=== PATIENT | female | born 1945 | race Caucasian/White ===

== ENCOUNTER 2016-09-11 06:20 | Emergency (ER) | payer MEDICARE ==
[~2016-09-11] VITALS: Ht 170.2 cm; Wt 106.1 kg
[~2016-09-11 06:20] MED LIST: AMLO10TA2 PO; AMOX1TAB61 PO; APIX5TAB PO; ASPI-482 PO; BENZ100C PO; DIPH25CA58 PO; GLIM2TAB2 PO; HYDR28OI6 TP; INSU300I SQ; LOSA100T6 PO; MAGN400T22 PO; RIVA10TA PO; SIMV40TA3 PO
[2016-09-11 06:26] VITALS: BP 138/65
--- NOTE | 2016-09-11 06:33 | EKG ---
[facility] [address] [place] [address] Test Date: 2016-09-11 Test Time: 06:25:55 Pat Name: RUTH ENNIS Department: Room: Gender: F [employer]er: : 1945 Requested By: David ELAINE Order Number: [id number] Reading MD: Karo Edge Measurements Intervals [place] Rate: 52 P: 51 AK: 204 QRS: -25 QRSD: 110 T: 31 QT: 462 QTc: 432 Interpretive Statements SINUS RHYTHM LEFTWARD AXIS NO SPECIFIC ECG ABNORMALITIES RI6.01 Compared to ECG 02/23/2016 11:30:35 Left-axis deviation now present Electronically Signed On 09-14-2016 15:47:24 CDT by Karo Edge
--- NOTE | 2016-09-11 06:38 | PHYS DOC ---
Past Medical History Past Medical History: A-Fib, CVA, Diabetes-Type II, Hypertension, Renal Disease Past Surgical History: Cholecystectomy Alcohol Use: None Drug Use: None Adult General Chief Complaint Chief Complaint: DIFFICULTY SWALLOWING HPI HPI Patient is a 71 year old female who presents by EMS for feeling like she " needs to burp a large burp". States this feeling started approximately 12 hours ago and she was unable to sleep well last night due to it. Has been constant. She denies difficulty swallowing, speech changes, chest pain, abdominal pain, throat burning, acid taste, fever or chills, nausea or vomiting , diarrhea, numbness, tingling, weakness, headache, dizziness. States she ate and drank normally yesterday. She had some water without difficulty prior to calling EMS. Review of Systems Review of Systems Constitutional: Denies fever or chills [] Eyes: Denies change in visual acuity, redness, or eye pain [] HENT: Denies nasal congestion or sore throat [] Respiratory: Denies cough or shortness of breath [] Cardiovascular: No additional information not addressed in HPI [] GI: Denies abdominal pain, nausea, vomiting, bloody stools or diarrhea [] : Denies dysuria or hematuria [] Musculoskeletal: Denies back pain or joint pain [] Integument: Denies rash or skin lesions [] Neurologic: Denies headache, focal weakness or sensory changes [] Endocrine: Denies polyuria or polydipsia [] Current Medications Current Medications Current Medications Medications (Trade) Dose Ordered Sig/Luis Carlos Start Time Stop Time Status Last Admin Dose Admin Multi-Ingredient Mouthwash/Gargle (Gi Cocktail Single Dose) 15 ml 1X ONCE 09/11/16 06:45 09/11/16 06:46 DC 09/11/16 06:42 15 ML Allergies Allergies Allergies Coded Allergies Type Severity Reaction Last Updated Verified WAQAS Inhibitors Allergy Intermediate Shortness of Air 09/05/16 Yes apixaban Allergy Intermediate Rash 02/23/16 Yes Physical Exam Physical Exam Constitutional: Well developed, well nourished, no acute distress, non-toxic appearance. Belching multiple times during exam. [] HENT: Normocephalic, atraumatic, bilateral external ears normal, oropharynx moist, no oral exudates, nose normal. [] Eyes: PERRLA, EOMI. [] Neck: Normal range of motion, no tenderness, supple, no stridor. [] Cardiovascular:Heart rate regular rhythm [] Lungs & Thorax: Bilateral breath sounds clear to auscultation [] Abdomen: Bowel sounds normal, soft, no tenderness. [] Skin: Warm, dry, no erythema, no rash. [] Back: No tenderness, no CVA tenderness. [] Extremities: No tenderness, ROM intact, no edema. [] Neurologic: Alert and oriented X 3, normal motor function, normal sensory function, no focal deficits noted. [] Psychologic: Affect normal, judgement normal, mood normal. [] Current Patient Data Vital Signs Vital Signs Date Time Temp Pulse Resp B/P Pulse Ox O2 Delivery O2 Flow Rate FiO2 09/11/16 06:26 98.8 53 12 138/65 97 Room Air 98.8 Lab Values Laboratory Tests Test 09/11/16 06:30 White Blood Count 7.8x10^3/uL (4.0-11.0) Red Blood Count 4.47x10^6/uL (3.50-5.40) Hemoglobin 13.7g/dL (12.0-15.5) Hematocrit 40.3% (36.0-47.0) Mean Corpuscular Volume 90fL (79-100) Mean Corpuscular Hemoglobin 31pg (25-35) Mean Corpuscular Hemoglobin Concent 34g/dL (31-37) Red Cell Distribution Width 13.1% (11.5-14.5) Platelet Count 207x10^3/uL (140-400) Neutrophils (%) (Auto) 62% (31-73) Lymphocytes (%) (Auto) 27% (24-48) Monocytes (%) (Auto) 8% (0-9) Eosinophils (%) (Auto) 3% (0-3) Basophils (%) (Auto) 1% (0-3) Neutrophils # (Auto) 4.8x10^3uL (1.8-7.7) Lymphocytes # (Auto) 2.1x10^3/uL (1.0-4.8) Monocytes # (Auto) 0.6x10^3/uL (0.0-1.1) Eosinophils # (Auto) 0.2x10^3/uL (0.0-0.7) Basophils # (Auto) 0.1x10^3/uL (0.0-0.2) Sodium Level 142mmol/L (136-145) Potassium Level 4.0mmol/L (3.5-5.1) Chloride Level 105mmol/L (98-107) Carbon Dioxide Level 27mmol/L (21-32) Anion Gap 10 (6-14) Blood Urea Nitrogen 22mg/dL (7-20) H Creatinine 1.4mg/dL (0.6-1.0) H Estimated GFR (Cockcroft-Gault) 37.1 Glucose Level 132mg/dL (70-99) H Calcium Level 10.1mg/dL (8.5-10.1) Troponin I Quantitative < 0.017ng/mL (0.000-0.055) Laboratory Tests 09/11/16 06:30 Laboratory Tests 09/11/16 06:30 EKG EKG EKG as interpreted by me as normal sinus rhythm, rate 52, no ST-T changes, P-R 204, QTc 432, no ectopy Course & Med Decision Making Course & Med Decision Making Pertinent Labs and Imaging studies reviewed. (See chart for details) Bedside swallow of water without difficulty. Laboratory evaluation is unremarkable. She is feeling better, however her symptoms have not completely resolved. Discussed supportive care for possible GERD. Return precautions given. She and family understand and agree with plan. Dragon Disclaimer Dragon Disclaimer This electronic medical record was generated, in whole or in part, using a voice recognition dictation system. Departure Departure Impression: Primary Impression: Belching Disposition: 01 HOME, SELF-CARE Condition: STABLE Referrals: QUINTON GONG MD (PCP) Patient Instructions: Gastroesophageal Reflux Disease, Adult, [id number] Additional Instructions: Try taking tums or medication such as gas-x to help with symptoms for possible acid reflux symptoms. Follow up with your primary care doctor. Return for any concerns. David ELAINE MD Sep 11, 2016 06:38
[2016-09-11] MEDS ORDERED: LIDO:MAALOX:DONNATAL 1:1:1 15 ML SINGLE DOSE SWSW ONE (06:45)
[2016-09-11 06:47] LABS: BASO # 0.1 x10^3/uL (0.0-0.2); BASO % 1 % (0-3); EOS % 3 % (0-3); HEMATOCRIT 40.3 % (36.0-47.0); HEMOGLOBIN 13.7 g/dL (12.0-15.5); LYMPH # 2.1 x10^3/uL (1.0-4.8); LYMPH % 27 % (24-48); MEAN CORPUSCULAR HEMOGLOBIN 31 pg (25-35); MEAN CORPUSCULAR HGB CONC 34 g/dL (31-37); MEAN CORPUSCULAR VOLUME 90 fL (79-100); MONO % 8 % (0-9); NEUT % 62 % (31-73); PLATELET COUNT 207 x10^3/uL (140-400); RED BLOOD COUNT 4.47 x10^6/uL (3.50-5.40); RED CELL DISTRIBUTION WIDTH 13.1 % (11.5-14.5); WHITE BLOOD COUNT 7.8 x10^3/uL (4.0-11.0)
[2016-09-11 06:58] LABS: CALCIUM 10.1 mg/dL (8.5-10.1); CREATININE 1.4 mg/dL (0.6-1.0); GFR 37.1
== END 2016-09-11 07:41 | disposition home or self-care (01) ==
LOC: ER 06:20
DX: R14.2 Eructation (principal); I48.91 Unspecified atrial fibrillation; E11.9 Type 2 diabetes mellitus without complications; I10 Essential (primary) hypertension; Z86.73 Personal history of transient ischemic attack (TIA), and cerebral infarction without residual deficits; Z88.8 Allergy status to other drugs, medicaments and biological substances
CPT/HCPCS: 36415; 80048; 84484; 85027; 93005; 99285-25

== ENCOUNTER 2016-09-14 12:22 | Emergency (ER) | payer MEDICARE ==
[~2016-09-14] VITALS: Ht 170.2 cm; Wt 106.1 kg
--- NOTE | 2016-09-14 13:11 | PHYS DOC ---
Past Medical History Past Medical History: A-Fib, CVA, Diabetes-Type II, Hypertension, Renal Disease Past Surgical History: Cholecystectomy Alcohol Use: None Drug Use: None Adult General Chief Complaint Chief Complaint: GI PROBLEM HPI HPI This is a 71-year-old female who continues to be belching for the last week. Patient was seen several days ago for similar complaints and told that she is likely having symptoms of GERD. She was placed on ranitidine therapy with no relief. She continues to actively belch in the room. She is tolerating her secretions without difficulty and she is in no distress. She was recently seen under my care for an acute CVA of her frontal lobe in which she had significant improvement of her symptoms on the hospital. She is not claiming any neuro deficits today. Review of Systems Review of Systems Constitutional: Denies fever or chills [] Eyes: Denies change in visual acuity, redness, or eye pain [] HENT: Denies nasal congestion or sore throat [] Respiratory: Denies cough or shortness of breath [] Cardiovascular: No additional information not addressed in HPI [] GI: Denies abdominal pain, nausea, vomiting, bloody stools or diarrhea [] : Denies dysuria or hematuria [] Musculoskeletal: Denies back pain or joint pain [] Integument: Denies rash or skin lesions [] Neurologic: Denies headache, focal weakness or sensory changes [] Endocrine: Denies polyuria or polydipsia [] Current Medications Current Medications Current Medications Medications (Trade) Dose Ordered Sig/Luis Carlos Start Time Stop Time Status Last Admin Dose Admin Simethicone (Gas-X) 80 mg PRN AFTMEALHC PRN 09/14/16 13:15 09/14/16 14:05 80 MG Allergies Allergies Allergies Coded Allergies Type Severity Reaction Last Updated Verified WAQAS Inhibitors Allergy Intermediate Shortness of Air 09/05/16 Yes apixaban Allergy Intermediate Rash 02/23/16 Yes Physical Exam Physical Exam Constitutional: Well developed, well nourished, no acute distress, non-toxic appearance. [] HENT: Normocephalic, atraumatic, bilateral external ears normal, oropharynx moist, no oral exudates, nose normal. [] Eyes: PERRLA, EOMI, conjunctiva normal, no discharge. [] Neck: Normal range of motion, no tenderness, supple, no stridor. [] Cardiovascular:Heart rate regular rhythm, no murmur [] Lungs & Thorax: Bilateral breath sounds clear to auscultation [] Abdomen: Bowel sounds normal, soft, no tenderness, no masses, no pulsatile masses. [] Skin: Warm, dry, no erythema, no rash. [] Back: No tenderness, no CVA tenderness. [] Extremities: No tenderness, no cyanosis, no clubbing, ROM intact, no edema. [] Neurologic: Alert and oriented X 3, normal motor function, normal sensory function, no focal deficits noted. [] Psychologic: Affect normal, judgement normal, mood normal. [] Current Patient Data Vital Signs Vital Signs Date Time Temp Pulse Resp B/P Pulse Ox O2 Delivery O2 Flow Rate FiO2 09/14/16 12:36 98.3 91 24 163/81 95 Room Air 98.3 Lab Values Laboratory Tests Test 09/14/16 13:14 White Blood Count 7.9x10^3/uL (4.0-11.0) Red Blood Count 4.54x10^6/uL (3.50-5.40) Hemoglobin 13.7g/dL (12.0-15.5) Hematocrit 41.4% (36.0-47.0) Mean Corpuscular Volume 91fL (79-100) Mean Corpuscular Hemoglobin 30pg (25-35) Mean Corpuscular Hemoglobin Concent 33g/dL (31-37) Red Cell Distribution Width 13.3% (11.5-14.5) Platelet Count 192x10^3/uL (140-400) Neutrophils (%) (Auto) 63% (31-73) Lymphocytes (%) (Auto) 27% (24-48) Monocytes (%) (Auto) 7% (0-9) Eosinophils (%) (Auto) 2% (0-3) Basophils (%) (Auto) 1% (0-3) Neutrophils # (Auto) 5.0x10^3uL (1.8-7.7) Lymphocytes # (Auto) 2.2x10^3/uL (1.0-4.8) Monocytes # (Auto) 0.6x10^3/uL (0.0-1.1) Eosinophils # (Auto) 0.2x10^3/uL (0.0-0.7) Basophils # (Auto) 0.1x10^3/uL (0.0-0.2) Sodium Level 142mmol/L (136-145) Potassium Level 4.0mmol/L (3.5-5.1) Chloride Level 104mmol/L (98-107) Carbon Dioxide Level 28mmol/L (21-32) Anion Gap 10 (6-14) Blood Urea Nitrogen 17mg/dL (7-20) Creatinine 1.2mg/dL (0.6-1.0) H Estimated GFR (Cockcroft-Gault) 44.3 BUN/Creatinine Ratio 14 (6-20) Glucose Level 100mg/dL (70-99) H Calcium Level 10.6mg/dL (8.5-10.1) H Total Bilirubin 1.4mg/dL (0.2-1.0) H Aspartate Amino Transferase (AST) 18U/L (15-37) Alanine Aminotransferase (ALT) 18U/L (14-59) Alkaline Phosphatase 90U/L (46-116) Troponin I Quantitative < 0.017ng/mL (0.000-0.055) Total Protein 7.3g/dL (6.4-8.2) Albumin 3.8g/dL (3.4-5.0) Albumin/Globulin Ratio 1.1 (1.0-1.7) Lipase 52U/L (73-393) L Laboratory Tests 09/14/16 13:14 Laboratory Tests 09/14/16 13:14 EKG EKG EKG as interpreted by me shows a sinus bradycardia with a rate of 49 bpm. QT interval is prolonged at 528 ms. There is a leftward axis. There are no obvious ischemic findings. Radiology/Procedures Radiology/Procedures [] Course & Med Decision Making Course & Med Decision Making Pertinent Labs and Imaging studies reviewed. (See chart for details) This is a 71 yo female presenting with GI discomfort and continued belching had minimal relief with simethicone. OB discharging her with close GI follow-up as she is likely candidate for endoscopy. She'll continue taking her medications as prescribed. There is the possibility this is a medication effect. She is tolerating her secretions without difficulty. Her laboratory workup was unremarkable including a EKG and chest x-ray. Dragon Disclaimer Dragon Disclaimer This electronic medical record was generated, in whole or in part, using a voice recognition dictation system. Departure Departure Impression: Primary Impression: Belching Additional Impression: Dyspepsia Disposition: 01 HOME, SELF-CARE Admitting Physician: Other Condition: STABLE Referrals: QUINTON GONG MD (PCP) TYREE VAZQUEZ MD Patient Instructions: Gastroesophageal Reflux Disease, Adult Additional Instructions: Please follow up with your primary doctor and the GI doctor, Dr. Vazquez, for your swallowing difficulties in the next 2-3 days. Continue to take your medication as prescribed. Return to the ER immediately if you develop any inability to swallow or develop any new symptoms such as chest pain or shortness of breath. Problem Qualifiers TYREE FISHER DO Sep 14, 2016 13:11
[2016-09-14] MEDS ORDERED: SIMETHICONE 80 MG TAB.CHEW PO PRN (13:15)
[2016-09-14 13:23] LABS: BASO # 0.1 x10^3/uL (0.0-0.2); BASO % 1 % (0-3); EOS % 2 % (0-3); HEMATOCRIT 41.4 % (36.0-47.0); HEMOGLOBIN 13.7 g/dL (12.0-15.5); LYMPH # 2.2 x10^3/uL (1.0-4.8); LYMPH % 27 % (24-48); MEAN CORPUSCULAR HEMOGLOBIN 30 pg (25-35); MEAN CORPUSCULAR HGB CONC 33 g/dL (31-37); MEAN CORPUSCULAR VOLUME 91 fL (79-100); MONO % 7 % (0-9); NEUT % 63 % (31-73); PLATELET COUNT 192 x10^3/uL (140-400); RED BLOOD COUNT 4.54 x10^6/uL (3.50-5.40); RED CELL DISTRIBUTION WIDTH 13.3 % (11.5-14.5); WHITE BLOOD COUNT 7.9 x10^3/uL (4.0-11.0)
[2016-09-14 13:34] LABS: CALCIUM 10.6 mg/dL (8.5-10.1); CREATININE 1.2 mg/dL (0.6-1.0); GFR 44.3
[2016-09-14 13:40] LABS: ALBUMIN 3.8 g/dL (3.4-5.0); ALBUMIN/GLOBULIN RATIO 1.1 (1.0-1.7); TOTAL BILIRUBIN 1.4 mg/dL (0.2-1.0); TOTAL PROTEIN 7.3 g/dL (6.4-8.2)
--- NOTE | 2016-09-14 14:21 | RAD ---
AP portable chest radiograph 09/14/2016 Clinical History: Increased belching. An AP portable erect digital radiograph of the chest was obtained. Comparison study is dated 09/04/2016. The cardiac silhouette is mildly enlarged. The thoracic aorta is tortuous. Atherosclerotic calcification of the thoracic aorta is seen. No acute pulmonary infiltrate is seen. No pleural effusion or pneumothorax is noted. Degenerative changes are seen involving the thoracic spine and both shoulders. Impression: No acute abnormality is seen.
[2016-09-14 14:30] VITALS: BP 125/59
--- NOTE | 2016-09-15 07:15 | EKG ---
[facility] [address] [place] [address] Test Date: 2016-09-14 Test Time: 13:41:07 Pat Name: RUTH ENNIS Department: Room: Gender: F [employer] Working [employer]visor: : 1945 Requested By: TYREE FISHER Order Number: [id number] Reading MD: Bernardo Pearson Measurements Intervals [place] Rate: 49 P: 90 AK: 198 QRS: -26 QRSD: 104 T: 35 QT: 528 QTc: 480 Interpretive Statements SINUS BRADYCARDIA Electronically Signed On 09-16-2016 15:34:19 CDT by Bernardo Pearson
== END 2016-09-14 14:50 | disposition home or self-care (01) ==
LOC: ER 12:22
DX: R14.2 Eructation (principal); R10.13 Epigastric pain; E11.9 Type 2 diabetes mellitus without complications; I10 Essential (primary) hypertension; I48.91 Unspecified atrial fibrillation; Z86.73 Personal history of transient ischemic attack (TIA), and cerebral infarction without residual deficits; Z90.49 Acquired absence of other specified parts of digestive tract
CPT/HCPCS: 36415; 71010; 80053; 83690; 84484; 85027; 93005; 99285-25

== ENCOUNTER → 2017-09-28 | Outpatient (CLI) | payer MEDICARE | END | disposition home or self-care (01) | LOC: ECHO 09:34 | DX: I08.3 Combined rheumatic disorders of mitral, aortic and tricuspid valves (principal); I12.9 Hypertensive chronic kidney disease with stage 1 through stage 4 chronic kidney disease, or unspecified chronic kidney disease; E11.22 Type 2 diabetes mellitus with diabetic chronic kidney disease; N18.4 Chronic kidney disease, stage 4 (severe) | CPT/HCPCS: 93306 ==

== ENCOUNTER 2019-01-24 08:59 | Observation (INO) | payer MEDICARE ==
[~2019-01-24] VITALS: Ht 170.2 cm; Wt 109.9 kg
[~2019-01-24 08:59] MED LIST changes: -AMLO10TA2 PO; +AMLO10TA8 PO; +LOSA100T14 PO; -LOSA100T6 PO
[2019-01-24 10:16] LABS: BASO # 0.1 x10^3/uL (0.0-0.2); BASO % 1 % (0-3); EOS # 0.2 x10^3/uL (0.0-0.7); EOS % 3 % (0-3); HEMATOCRIT 43.4 % (36.0-47.0); HEMOGLOBIN 14.6 g/dL (12.0-15.5); LYMPH # 1.6 x10^3/uL (1.0-4.8); LYMPH % 20 % (24-48); MEAN CORPUSCULAR HEMOGLOBIN 31 pg (25-35); MEAN CORPUSCULAR HGB CONC 34 g/dL (31-37); MEAN CORPUSCULAR VOLUME 92 fL (79-100); MONO # 0.6 x10^3/uL (0.0-1.1); MONO % 8 % (0-9); NEUT # 5.5 x10^3/uL (1.8-7.7); NEUT % 69 % (31-73); PLATELET COUNT 204 x10^3/uL (140-400); RED BLOOD COUNT 4.71 x10^6/uL (3.50-5.40); RED CELL DISTRIBUTION WIDTH 13.4 % (11.5-14.5)
[2019-01-24 10:17] LABS: CREATININE 1.3 mg/dL (0.6-1.0); GFR 40.2; POTASSIUM 3.8 mmol/L (3.5-5.1)
[2019-01-24 10:23] LABS: ALBUMIN 3.5 g/dL (3.4-5.0); ALBUMIN/GLOBULIN RATIO 0.8 (1.0-1.7); TOTAL BILIRUBIN 1.7 mg/dL (0.2-1.0); TOTAL PROTEIN 7.9 g/dL (6.4-8.2)
[2019-01-24 10:38] LABS: PROTHROMBIN TIME PATIENT 26.7 SEC (11.7-14.0)
[2019-01-24 10:51] LABS: FECAL OB PT POSITIVE (NEG)
--- NOTE | 2019-01-24 10:57 | PHYS DOC ---
Past Medical History Past Medical History: A-Fib, CVA, Diabetes-Type II, High Cholesterol, Hypertension, Renal Disease Past Surgical History: Cholecystectomy Alcohol Use: None Drug Use: None Adult General Chief Complaint Chief Complaint: RECTAL BLEED [facility] HPI Patient is a 73 year old female on XARELTO HX OF AFIB ON CVA P/W RECTAL BLEEDING "ALL NIGHT LAST NIGHT" SINCE 5 PM EVERYTIME WENT TO BATHROOM the toilet bowl was filled with blood she really couldn't tell if there was any stool or not she did not see any brown stool no abdominal pain no chest pain no shortness of breath and feels a little weak. She was constipated about 6 days ago but then she had a couple of normal bowel movements in the interim. No prior history of GI bleeding that she knows of. Her last colonoscopy was a few years ago she does not know the results except for the fact that they took out a polyp she tells me Review of Systems Review of Systems Constitutional: Denies fever or chills [] Eyes: Denies change in visual acuity, redness, or eye pain [] HENT: Denies nasal congestion or sore throat [] Respiratory: Denies cough or shortness of breath [] Cardiovascular: No additional information not addressed in HPI [] GI: All other systems were reviewed and found to be within normal limits, except as documented in this note. Allergies Allergies Allergies Coded Allergies Type Severity Reaction Last Updated Verified WAQAS Inhibitors Allergy Intermediate Shortness of Air 09/05/16 Yes apixaban Allergy Intermediate Rash 02/23/16 Yes Physical Exam Physical Exam Constitutional: Well developed, well nourished, no acute distress, non-toxic appearance. [] HENT: Normocephalic, atraumatic, bilateral external ears normal, oropharynx mo ist, no oral exudates, nose normal. [] Eyes: PERRLA, EOMI, conjunctiva normal, no discharge. [] Neck: Normal range of motion, no tenderness, supple, no stridor. [] Cardiovascular:Heart rate regular rhythm, no murmur [] Lungs & Thorax: Bilateral breath sounds clear to auscultation [] Abdomen: Bowel sounds normal, soft, no tenderness, no masses, no pulsatile masses. [] Rectal exam performed: Did show evidence of light on the pad as well as no obvious external hemorrhoid there was basically red stool in the rectal vault proximally tested positive in the lab Skin: Warm, dry, no erythema, no rash. [] Back: No tenderness, no CVA tenderness. [] Extremities: No tenderness, no cyanosis, no clubbing, ROM intact, no edema. [] Neurologic: Alert and oriented X 3, normal motor function, normal sensory func tion, no focal deficits noted. [] Psychologic: Affect normal, judgement normal, mood normal. [] Current Patient Data Vital Signs Vital Signs Date Time Temp Pulse Resp B/P (MAP) Pulse Ox O2 Delivery O2 Flow Rate FiO2 01/24/19 09:20 97.6 94 16 114/77 (89) 96 Room Air 97.6 Lab Values Laboratory Tests Test 01/24/19 09:30 01/24/19 09:57 Stool Occult Blood Positive (NEG) White Blood Count 8.0 x10^3/uL (4.0-11.0) Red Blood Count 4.71 x10^6/uL (3.50-5.40) Hemoglobin 14.6 g/dL (12.0-15.5) Hematocrit 43.4 % (36.0-47.0) Mean Corpuscular Volume 92 fL (79-100) Mean Corpuscular Hemoglobin 31 pg (25-35) Mean Corpuscular Hemoglobin Concent 34 g/dL (31-37) Red Cell Distribution Width 13.4 % (11.5-14.5) Platelet Count 204 x10^3/uL (140-400) Neutrophils (%) (Auto) 69 % (31-73) Lymphocytes (%) (Auto) 20 % (24-48) L Monocytes (%) (Auto) 8 % (0-9) Eosinophils (%) (Auto) 3 % (0-3) Basophils (%) (Auto) 1 % (0-3) Neutrophils # (Auto) 5.5 x10^3/uL (1.8-7.7) Lymphocytes # (Auto) 1.6 x10^3/uL (1.0-4.8) Monocytes # (Auto) 0.6 x10^3/uL (0.0-1.1) Eosinophils # (Auto) 0.2 x10^3/uL (0.0-0.7) Basophils # (Auto) 0.1 x10^3/uL (0.0-0.2) Prothrombin Time 26.7 SEC (11.7-14.0) H Prothrombin Time INR 2.5 (0.8-1.1) H Sodium Level 143 mmol/L (136-145) Potassium Level 3.8 mmol/L (3.5-5.1) Chloride Level 105 mmol/L (98-107) Carbon Dioxide Level 25 mmol/L (21-32) Anion Gap 13 (6-14) Blood Urea Nitrogen 15 mg/dL (7-20) Creatinine 1.3 mg/dL (0.6-1.0) H Estimated GFR (Cockcroft-Gault) 40.2 BUN/Creatinine Ratio 12 (6-20) Glucose Level 212 mg/dL (70-99) H Calcium Level 10.0 mg/dL (8.5-10.1) Total Bilirubin 1.7 mg/dL (0.2-1.0) H Aspartate Amino Transferase (AST) 21 U/L (15-37) Alanine Aminotransferase (ALT) 16 U/L (14-59) Alkaline Phosphatase 93 U/L (46-116) Total Protein 7.9 g/dL (6.4-8.2) Albumin 3.5 g/dL (3.4-5.0) Albumin/Globulin Ratio 0.8 (1.0-1.7) L Laboratory Tests 01/24/19 09:57 Laboratory Tests 01/24/19 09:57 EKG EKG [] Radiology/Procedures Radiology/Procedures [] Course & Med Decision Making Course & Med Decision Making Pertinent Labs and Imaging studies reviewed. (See chart for details) []This is a 73-year-old female with a history of A. fib onXARELTO presenting with rectal bleeding. It could perhaps be a hemorrhoid although I did not see obvious evidence of this the good news is the blood pressure and he will are normal. Given the fact that she is on anticoagulation She had talked about risk and benefits we agreed to observation overnight serial hemoglobins, plan to consult with Dr. Echeverria for admission. Dragon Disclaimer Dragon Disclaimer This electronic medical record was generated, in whole or in part, using a voice recognition dictation system. Departure Departure Impression: Primary Impression: GI bleed Disposition: ADMITTED INPATIENT Admitting Physician: HARPAL Condition: STABLE Referrals: MONICA CORDERO MD (PCP) KHLOE PAULSON MD Jan 24, 2019 10:56
[2019-01-24] MEDS: IV NORMAL SALINE 1000ML BAG 1,000 ML IV SCH (12:15)
[2019-01-24 12:35] VITALS: BP 120/75
--- NOTE | 2019-01-24 13:25 | PDOC2 ---
CONSULT Date of Consult Date of Consult DATE: 01/24/19 TIME: 13:23 Reason for Consult Reason for Consult: Rectal bleeding/hx colon polyps Past Medical History Cardiovascular: AFIB, HTN, Hyperlipidemia Pulmonary: Pulmonary embolus CENTRAL NERVOUS SYSTEM: Other GI: No pertinent hx Heme/Onc: Anemia NOS Hepatobiliary: No pertinent hx Psych: No pertinent hx Musculoskeletal: Osteoarthritis Rheumatologic: No pertinent hx Infectious disease: No pertinent hx Renal/: Chronic renal insuff Endocrine: Diabetes, Hyperparathyroidism, Other Past Surgical History Past Surgical History: Cholecystectomy, Other Family History Family History: Cancer, Diabetes Social History ALCOHOL: none Drugs: None Lives: Alone Current Problem List Problem List Problems Medical Problems: (1) GI bleed Status: Acute Current Medications Current Medications Current Medications Sodium Chloride 1,000 ml @ 75 mls/hr [id number] IV Last administered on 01/24/19at 12:15; Start 01/24/19 at 10:52; Stop 01/25/19 at 10:51 Active Scripts Active Anti-Itch (Hydrocortisone Acetate) 28 Gm Oint...g. 1 Jimi TP QIDPRN Benadryl (Diphenhydramine Hcl) 25 Mg Capsule 50 Mg PO PRN Q6HRS PRN Reported Tessalon Perle (Benzonatate) 100 Mg Capsule 100 Mg PO TID PRN 10 Days Toujeo Solostar (Insulin Glargine,Hum.rec.anlog) 300 Unit/1 Ml Insuln.pen 30 Unit SQ HS Glimepiride 2 Mg Tablet 2 Mg PO BIDAC Aspir 81 (Aspirin) 81 Mg Tablet.dr 81 Mg PO Losartan Potassium 100 Mg Tablet 100 Mg PO DAILY Mag-Oxide (Magnesium Oxide) 400 Mg Tablet 1 Tab PO BID Amlodipine Besylate 10 Mg Tablet 10 Mg PO DAILY Simvastatin 40 Mg Tablet 40 Mg PO DAILY Allergies Allergies: Coded Allergies: WAQAS Inhibitors (Verified Allergy, Intermediate, Shortness of Air, 09/05/16) apixaban (Verified Allergy, Intermediate, Rash, 02/23/16) Vitals VITALS Vital Signs Date Time Temp Pulse Resp B/P (MAP) Pulse Ox O2 Delivery O2 Flow Rate FiO2 01/24/19 12:13 86 18 127/67 (87) 97 Room Air 01/24/19 09:20 97.6 97.6 Labs Labs Laboratory Tests Test 01/24/19 09:30 01/24/19 09:57 Stool Occult Blood Positive (NEG) White Blood Count 8.0 x10^3/uL (4.0-11.0) Red Blood Count 4.71 x10^6/uL (3.50-5.40) Hemoglobin 14.6 g/dL (12.0-15.5) Hematocrit 43.4 % (36.0-47.0) Mean Corpuscular Volume 92 fL (79-100) Mean Corpuscular Hemoglobin 31 pg (25-35) Mean Corpuscular Hemoglobin Concent 34 g/dL (31-37) Red Cell Distribution Width 13.4 % (11.5-14.5) Platelet Count 204 x10^3/uL (140-400) Neutrophils (%) (Auto) 69 % (31-73) Lymphocytes (%) (Auto) 20 % (24-48) Monocytes (%) (Auto) 8 % (0-9) Eosinophils (%) (Auto) 3 % (0-3) Basophils (%) (Auto) 1 % (0-3) Neutrophils # (Auto) 5.5 x10^3/uL (1.8-7.7) Lymphocytes # (Auto) 1.6 x10^3/uL (1.0-4.8) Monocytes # (Auto) 0.6 x10^3/uL (0.0-1.1) Eosinophils # (Auto) 0.2 x10^3/uL (0.0-0.7) Basophils # (Auto) 0.1 x10^3/uL (0.0-0.2) Prothrombin Time 26.7 SEC (11.7-14.0) Prothromb Time International Ratio 2.5 (0.8-1.1) Sodium Level 143 mmol/L (136-145) Potassium Level 3.8 mmol/L (3.5-5.1) Chloride Level 105 mmol/L (98-107) Carbon Dioxide Level 25 mmol/L (21-32) Anion Gap 13 (6-14) Blood Urea Nitrogen 15 mg/dL (7-20) Creatinine 1.3 mg/dL (0.6-1.0) Estimated GFR (Cockcroft-Gault) 40.2 BUN/Creatinine Ratio 12 (6-20) Glucose Level 212 mg/dL (70-99) Calcium Level 10.0 mg/dL (8.5-10.1) Total Bilirubin 1.7 mg/dL (0.2-1.0) Aspartate Amino Transf (AST/SGOT) 21 U/L (15-37) Alanine Aminotransferase (ALT/SGPT) 16 U/L (14-59) Alkaline Phosphatase 93 U/L (46-116) Total Protein 7.9 g/dL (6.4-8.2) Albumin 3.5 g/dL (3.4-5.0) Albumin/Globulin Ratio 0.8 (1.0-1.7) Laboratory Tests Test 01/24/19 09:30 01/24/19 09:57 Stool Occult Blood Positive (NEG) White Blood Count 8.0 x10^3/uL (4.0-11.0) Red Blood Count 4.71 x10^6/uL (3.50-5.40) Hemoglobin 14.6 g/dL (12.0-15.5) Hematocrit 43.4 % (36.0-47.0) Mean Corpuscular Volume 92 fL (79-100) Mean Corpuscular Hemoglobin 31 pg (25-35) Mean Corpuscular Hemoglobin Concent 34 g/dL (31-37) Red Cell Distribution Width 13.4 % (11.5-14.5) Platelet Count 204 x10^3/uL (140-400) Neutrophils (%) (Auto) 69 % (31-73) Lymphocytes (%) (Auto) 20 % (24-48) Monocytes (%) (Auto) 8 % (0-9) Eosinophils (%) (Auto) 3 % (0-3) Basophils (%) (Auto) 1 % (0-3) Neutrophils # (Auto) 5.5 x10^3/uL (1.8-7.7) Lymphocytes # (Auto) 1.6 x10^3/uL (1.0-4.8) Monocytes # (Auto) 0.6 x10^3/uL (0.0-1.1) Eosinophils # (Auto) 0.2 x10^3/uL (0.0-0.7) Basophils # (Auto) 0.1 x10^3/uL (0.0-0.2) Prothrombin Time 26.7 SEC (11.7-14.0) Prothromb Time International Ratio 2.5 (0.8-1.1) Sodium Level 143 mmol/L (136-145) Potassium Level 3.8 mmol/L (3.5-5.1) Chloride Level 105 mmol/L (98-107) Carbon Dioxide Level 25 mmol/L (21-32) Anion Gap 13 (6-14) Blood Urea Nitrogen 15 mg/dL (7-20) Creatinine 1.3 mg/dL (0.6-1.0) Estimated GFR (Cockcroft-Gault) 40.2 BUN/Creatinine Ratio 12 (6-20) Glucose Level 212 mg/dL (70-99) Calcium Level 10.0 mg/dL (8.5-10.1) Total Bilirubin 1.7 mg/dL (0.2-1.0) Aspartate Amino Transf (AST/SGOT) 21 U/L (15-37) Alanine Aminotransferase (ALT/SGPT) 16 U/L (14-59) Alkaline Phosphatase 93 U/L (46-116) Total Protein 7.9 g/dL (6.4-8.2) Albumin 3.5 g/dL (3.4-5.0) Albumin/Globulin Ratio 0.8 (1.0-1.7) Assessment/Plan Assessment/Plan Rectal bleed- with history of colon poylps, hemorrhoids and/or diverticualr disease leads differential. Malignancy, IBD, AVMS, and/or ischemic colitis in differential. Plan serial CBCs imaging studies and/or iterval colonoscopy if bleeding persists as inpt/otherwise o/p colonoscopy recommended hold anticoagulation for now Full noted dictated TYREE MUHAMMAD MD Jan 24, 2019 13:25
[2019-01-24] MEDS ORDERED: GLIM4TAB2 PO (13:26)
[2019-01-24] MEDS ORDERED: METO25TA4 PO (13:26)
[2019-01-24] MEDS ORDERED: RIVA20TA2 PO (13:26)
[2019-01-24] MEDS ORDERED: OLME20TA17 PO (13:26)
[2019-01-24] MEDS ORDERED: INSU100V37 SQ (13:26)
[2019-01-24] MEDS ORDERED: MAGN400T3 PO (13:26)
[2019-01-24] MEDS ORDERED: HYDROCORTISONE 1% TOPICAL OINTMENT 30GM TUBE. TP PRN (14:00)
--- NOTE | 2019-01-24 15:04 | NUR ---
Patient transferred to room 254 at 1500, report given to SUSANA Madden.
[2019-01-24 15:16] VITALS: BP 113/67
--- NOTE | 2019-01-24 15:19 | NUR ---
Report received from Angela MEZA for transfer of patient. Agree with assessment done on admission. Patient is comfortable with family at bedside, oriented to room, call light within reach. Will monitor.
[2019-01-24 15:26] LABS: BASO # 0.1 x10^3/uL (0.0-0.2); BASO % 1 % (0-3); EOS # 0.2 x10^3/uL (0.0-0.7); EOS % 2 % (0-3); HEMATOCRIT 39.7 % (36.0-47.0); HEMOGLOBIN 13.5 g/dL (12.0-15.5); LYMPH # 2.2 x10^3/uL (1.0-4.8); LYMPH % 29 % (24-48); MEAN CORPUSCULAR HEMOGLOBIN 31 pg (25-35); MEAN CORPUSCULAR HGB CONC 34 g/dL (31-37); MEAN CORPUSCULAR VOLUME 91 fL (79-100); MONO # 0.6 x10^3/uL (0.0-1.1); MONO % 8 % (0-9); NEUT # 4.6 x10^3/uL (1.8-7.7); NEUT % 60 % (31-73); PLATELET COUNT 181 x10^3/uL (140-400); RED BLOOD COUNT 4.36 x10^6/uL (3.50-5.40); RED CELL DISTRIBUTION WIDTH 13.6 % (11.5-14.5); WHITE BLOOD COUNT 7.6 x10^3/uL (4.0-11.0)
[2019-01-24] MEDS: GLIMEPIRIDE 2 MG TABLET. PO SCH (17:05)
[2019-01-24 19:30] VITALS: BP 124/58
[2019-01-24] MEDS ORDERED: ATORVASTATIN CALCIUM 20 MG TABLET PO SCH (21:00)
[2019-01-24] MEDS ORDERED: INSULIN GLARGINE SYRINGE. SQ SCH (21:00)
--- NOTE | 2019-01-24 22:09 | HP ---
ADMIT DATE: 01/24/2019 CHIEF COMPLAINT: Rectal bleeding. HISTORY OF PRESENT ILLNESS: The patient is a pleasant 73-year-old female who is on Xarelto for AFib and strokes. She has been developing rectal bleeding, has been occurring all night long, rated at 6/10. She has associated weakness. She tried taking some home meds, but that did not seem to help. I discussed the case with the ER physician. We are going to admit the patient and consult Cardiology and GI. PAST MEDICAL HISTORY: Chronic anticoagulation, strokes, AFib, diabetes, hypertension, hyperlipidemia, chronic renal insufficiency and cholecystectomy. ALLERGIES: WAQAS INHIBITORS AND ELIQUIS. FAMILY HISTORY: Coronary artery disease. SOCIAL HISTORY: She does not drink, smoke or take drugs. MEDICATIONS: Reviewed, please refer to the MRAD. REVIEW OF SYSTEMS: GENERAL: No history of weight change, weakness or fevers. SKIN: No bruising, hair changes or rashes. EYES: No blurred, double or loss of vision. NOSE AND THROAT: No history of nosebleeds, hoarseness or sore throat. HEART: No history of palpitations, chest pain or shortness of breath on exertion. LUNGS: Denies cough, hemoptysis, wheezing or shortness of breath. GASTROINTESTINAL: Complains of hematochezia. GENITOURINARY: No history of frequency, urgency, hesitancy or nocturia. NEUROLOGIC: Denies history of numbness, tingling, tremor or weakness. PSYCHIATRIC: No history of panic, anxiety or depression. ENDOCRINE: No history of heat or cold intolerance, polyuria or polydipsia. EXTREMITIES: Denies muscle weakness, joint pain, pain on walking or stiffness. PHYSICAL EXAMINATION: VITALS: Within normal limits and are stable. GENERAL: No apparent distress. Alert and oriented. HEENT: Head is normocephalic, atraumatic, pupils were equally round and reactive to light and accommodation. NECK: Supple, no JVD, no thyromegaly was noted. LUNGS: Clear to auscultation in all lung dennis without rhonchi or wheezing. HEART: RRR, S1, S2 present. Peripheral pulses intact, no obvious murmurs were noted. ABDOMEN: Soft, nontender. Positive bowel sounds no organomegaly, normal bowel sounds. EXTREMITIES: Without any cyanosis, clubbing, or edema. Pedal pulses intact, Homans sign is negative. NEUROLOGIC: Normal speech, normal tone. A & O x3, moves all extremities, no obvious focal deficits. PSYCHIATRIC: Normal affect, normal mood. Stable. SKIN: No ulcerations or rashes, good skin turgor, no jaundice. VASCULAR: Good capillary refill, neurovascular bundle appears to be intact. LABORATORY DATA: White count 8, hemoglobin 13.5, platelets 181. Electrolytes are normal. ASSESSMENT AND PLAN: Gastrointestinal bleed in an elderly female who is on anticoagulation. We will go ahead and hold anticoagulation. Consult Dr. Vazquez, consult Dr. Pearson, cardiac monitoring, serial labs and trend her hemoglobin closely. Deep venous thrombosis prophylaxis. Full code. PROGNOSIS: Guarded. CECILY MANCILLA DO DR: ESTIVEN/kriss JOB#: [id number] / [id number]
[2019-01-24] MEDS: MAGNESIUM OXIDE 400 MG TABLET PO SCH (22:23)
[2019-01-24] MEDS: METOPROLOL TART IMMED RELEASE 25 MG TABLET. PO SCH (22:24)
--- NOTE | 2019-01-24 22:28 | CONS ---
DATE OF CONSULTATION: 01/24/2019 GASTROENTEROLOGY CONSULTATION REASON FOR CONSULTATION: Rectal bleeding, on anticoagulation. HISTORY OF PRESENT ILLNESS: A 73-year-old female with a past medical history significant for AFib, CVA, diabetes, hyperlipidemia, hypertension, renal insufficiency as well as previous cholecystectomy, was admitted to [facility] with rectal bleeding. She is on aspirin and Xarelto as blood thinners. She has had intermittent bleeding for the past week, which has been painless. Last night, it became more profuse and severe, leading to hospitalization. Hemoglobin is 14.6 and BUN is 15, creatinine is 1.3. Denies any pain. States she has undergone colonoscopy in the past, which did reveal colonic polyps but no diverticular disease to her knowledge and with her bleeding, she has been admitted for further evaluation and care. PAST MEDICAL HISTORY: Organic heart disease, hypertension, hyperlipidemia, diabetes, AFib, history of CVA, status post cholecystectomy, history of colonic polyps. ALLERGIES: WAQAS INHIBITORS AND APIXABAN. MEDICATIONS: Include Xarelto and aspirin. SOCIAL HISTORY: She is retired. She does not drink or smoke. FAMILY HISTORY: As stated, family history is noncontributory. REVIEW OF SYSTEMS: Per records. PHYSICAL EXAMINATION: GENERAL: Reveals a well-nourished, well-developed female, who is alert, cooperative, in no acute distress. VITAL SIGNS: Temperature is 97.6, pulse 86, respirations 18, blood pressure is 127/67. HEENT: Normocephalic, atraumatic head. Pupils and extraocular muscles are not tested. Sclerae anicteric. NECK: Supple. LUNGS: Clear. CARDIOVASCULAR: Reveals an S1, S2 without S3, S4 or appreciable murmur. ABDOMEN: Reveals a soft abdomen, normal bowel sounds, without appreciable hepatosplenomegaly. Right upper quadrant cholecystectomy incision. EXTREMITIES: Reveals no cyanosis, clubbing or edema. LABORATORY STUDIES: Sodium 143, potassium 3.8, chloride 105, BUN 15, creatinine 1.3, glucose 212, calcium is 10.0, total bilirubin 1.7, AST 21, ALT of 16, alkaline phosphatase 90, total protein 7.9, albumin 3.5. Hemoglobin is 14.6, hematocrit 43.4, white count 5.1, platelet count is 204,000. IMPRESSION: Rectal bleeding with history of colonic polyps, hemorrhoids and/or diverticular disease; I believe the differential of ischemic colitis, colon cancer, AVMs, certainly are possible as well. Therefore, I recommend serial blood counts, advance diet to full liquids and followup. If the patient should have ongoing bleeding, then imaging studies including bleeding scan, CTA and/or colonoscopy will be performed as an inpatient. Otherwise, interval colonoscopy as an outpatient would be pursued. TYREE MUHAMMAD MD DR: ADRIANE/kriss JOB#: [id number] / [id number]
[2019-01-24 23:36] VITALS: BP 119/64
[2019-01-25] MEDS: IV NORMAL SALINE 1000ML BAG 1,000 ML IV SCH (01:30)
[2019-01-25 03:49] VITALS: BP 114/69
[2019-01-25 05:33] LABS: BASO # 0.1 x10^3/uL (0.0-0.2); BASO % 1 % (0-3); EOS # 0.3 x10^3/uL (0.0-0.7); EOS % 5 % (0-3); HEMATOCRIT 35.9 % (36.0-47.0); HEMOGLOBIN 12.2 g/dL (12.0-15.5); LYMPH % 30 % (24-48); MEAN CORPUSCULAR HEMOGLOBIN 31 pg (25-35); MEAN CORPUSCULAR HGB CONC 34 g/dL (31-37); MEAN CORPUSCULAR VOLUME 91 fL (79-100); MONO # 0.7 x10^3/uL (0.0-1.1); MONO % 11 % (0-9); NEUT # 3.6 x10^3/uL (1.8-7.7); NEUT % 53 % (31-73); PLATELET COUNT 162 x10^3/uL (140-400); RED BLOOD COUNT 3.93 x10^6/uL (3.50-5.40); RED CELL DISTRIBUTION WIDTH 13.5 % (11.5-14.5); WHITE BLOOD COUNT 6.7 x10^3/uL (4.0-11.0)
[2019-01-25 07:00] VITALS: BP 111/65
[2019-01-25] MEDS ORDERED: ACETAMINOPHEN 500 MG TABLET PO PRN (09:00)
[2019-01-25] MEDS ORDERED: IV DEXTROSE 5% 250 ML BAG. IV PRN (09:00)
[2019-01-25] MEDS ORDERED: amLODIPine BESYLATE 10 MG TABLET PO SCH (09:00)
[2019-01-25] MEDS ORDERED: LOSARTAN POTASSIUM 50 MG TABLET. PO SCH (09:00)
[2019-01-25] MEDS ORDERED: DEXTROSE 50% 25 GM / 50ML DISP.SYRIN. IV PRN (09:00)
[2019-01-25] MEDS ORDERED: ACETAMINOPHEN/CODEINE 300/30MG TABLET. PO PRN (09:00)
[2019-01-25] MEDS ORDERED: ONDANSETRON PF 4 MG/2 ML VIAL. IV PRN (09:00)
[2019-01-25] MEDS: METOPROLOL TART IMMED RELEASE 25 MG TABLET. PO SCH (09:22)
[2019-01-25] MEDS: GLIMEPIRIDE 2 MG TABLET. PO SCH ×2 (09:23→17:47)
[2019-01-25] MEDS: MAGNESIUM OXIDE 400 MG TABLET PO SCH (09:23)
--- NOTE | 2019-01-25 10:16 | PDOC2 ---
NAYELI CARTER TRY ON BASTER 01/25/19 1016: CARDIAC CONSULT DATE OF CONSULT Date of Consult DATE: 01/25/19 TIME: 10:10 REASON FOR CONSULT Reason for Consult: AFIB, Xarelto on hold with GI bleed REFERRING PHYSICIAN Referring Physician: Dr. Echeverria SOURCE Source: Chart review, Patient HISTORY OF PRESENT ILLNESS HISTORY OF PRESENT ILLNESS This is a 73 yo female, with a history of AFIB on Xarelto, who presented secondary to bleeding in stool. Patient reports having difficulty with constipation late last week. On Thursday, woke up with blood stain on sheets. Thursday afternoon, began having blood smeared on tissue when wiping. On Thursday, began having blood in the toilet with stools. Had blood smeared on tissue again on Thursday morning, but none further since. Is on Xarelto due to history of AFIB, CVA, PE, and DVT. Reports compliance with meds. No chest pain, dizziness, diaphoresis, or nausea/vomiting. PAST MEDICAL HISTORY Past Medical History Cardiovascular: AFIB, HTN, Hyperlipidemia Pulmonary: Pulmonary embolus (with unprovoked DVT) Neuro: CVA GI: No pertinent hx Heme/Onc: Anemia NOS (of chronic disease) Hepatobiliary: No pertinent hx Psych: No pertinent hx Musculoskeletal: Osteoarthritis Rheumatologic: No pertinent hx Infectious disease: No pertinent hx ENT: No pertinent hx Renal/: Chronic renal insuff Endocrine: Diabetes (insulin requiring), Hyperparathyroidism, Other (Vitamin D deficiency) Dermatology: No pertinent hx PAST SURGICAL HISTORY Past Surgical History Cholecystectomy, Other (fusion of ankle fracture) FAMILY HISTORY Family History: Cancer, Diabetes SOCIAL HISTORY Social History Smoke: No ALCOHOL: none Drugs: None Lives: Alone CURRENT MEDICATIONS CURRENT MEDICATIONS Current Medications Medications (Trade) Dose Ordered Sig/Luis Carlos Route PRN Reason Start Time Stop Time Status Last Admin Dose Admin Sodium Chloride 1,000 ml @ 75 mls/hr [id number] IV 01/24/19 10:52 01/25/19 10:51 01/25/19 02:55 Magnesium Oxide (Magnesium Oxide) 400 mg BID PO 01/24/19 21:00 01/25/19 09:24 Metoprolol Tartrate (Lopressor) 25 mg BID PO 01/24/19 21:00 01/25/19 09:24 Atorvastatin Calcium (Lipitor) 20 mg QHS PO 01/24/19 21:00 01/24/19 22:24 Glimepiride (Amaryl) 4 mg BIDWMEALS PO 01/24/19 17:00 01/25/19 09:24 Insulin Glargine (Lantus Syringe) 24 unit QHS SQ 01/24/19 21:00 01/24/19 22:24 ALLERGIES ALLERGIES: Coded Allergies: WAQAS Inhibitors (Verified Allergy, Intermediate, Shortness of Air, 09/05/16) apixaban (Verified Allergy, Intermediate, Rash, 02/23/16) ROS Review of System 14 point ROS conducted with pertinent positives noted above in HPI PHYSICAL EXAM PHYSICAL EXAM General: Alert, Oriented X3, Cooperative, No acute distress HEENT: Atraumatic, PERRLA, Heart: Regular rate, Normal S1, Normal S2, Other (2/6 systolic murmur, tele: SB/SR) Abdomen: Normal bowel sounds, Soft Extremities: Normal pulses, No edema Skin: No rashes Neuro: normal speech, sensation intact Psych/Mental Status: Mental status NL, Mood NL MUSCULOSKELETAL: No deformity VITALS/I&O VITALS/I&O: Vital Signs Date Time Temp Pulse Resp B/P (MAP) Pulse Ox O2 Delivery O2 Flow Rate FiO2 01/25/19 09:24 65 111/65 01/25/19 07:00 98.2 18 95 Room Air 98.2 I & O 01/24/19 01/24/19 01/25/19 14:59 22:59 06:59 Intake Total 693 ml 1600 ml Output Total 1 ml Balance 693 ml 1599 ml LABS Lab: Laboratory Tests Test 01/24/19 15:00 01/24/19 16:18 01/24/19 20:39 01/25/19 04:30 White Blood Count 7.6 x10^3/uL (4.0-11.0) 6.7 x10^3/uL (4.0-11.0) Red Blood Count 4.36 x10^6/uL (3.50-5.40) 3.93 x10^6/uL (3.50-5.40) Hemoglobin 13.5 g/dL (12.0-15.5) 12.2 g/dL (12.0-15.5) Hematocrit 39.7 % (36.0-47.0) 35.9 % (36.0-47.0) L Mean Corpuscular Volume 91 fL (79-100) 91 fL (79-100) Mean Corpuscular Hemoglobin 31 pg (25-35) 31 pg (25-35) Mean Corpuscular Hemoglobin Concent 34 g/dL (31-37) 34 g/dL (31-37) Red Cell Distribution Width 13.6 % (11.5-14.5) 13.5 % (11.5-14.5) Platelet Count 181 x10^3/uL (140-400) 162 x10^3/uL (140-400) Neutrophils (%) (Auto) 60 % (31-73) 53 % (31-73) Lymphocytes (%) (Auto) 29 % (24-48) 30 % (24-48) Monocytes (%) (Auto) 8 % (0-9) 11 % (0-9) H Eosinophils (%) (Auto) 2 % (0-3) 5 % (0-3) H Basophils (%) (Auto) 1 % (0-3) 1 % (0-3) Neutrophils # (Auto) 4.6 x10^3/uL (1.8-7.7) 3.6 x10^3/uL (1.8-7.7) Lymphocytes # (Auto) 2.2 x10^3/uL (1.0-4.8) 2.0 x10^3/uL (1.0-4.8) Monocytes # (Auto) 0.6 x10^3/uL (0.0-1.1) 0.7 x10^3/uL (0.0-1.1) Eosinophils # (Auto) 0.2 x10^3/uL (0.0-0.7) 0.3 x10^3/uL (0.0-0.7) Basophils # (Auto) 0.1 x10^3/uL (0.0-0.2) 0.1 x10^3/uL (0.0-0.2) Glucose (Fingerstick) 131 mg/dL (70-99) H 154 mg/dL (70-99) H Test 01/25/19 08:12 Glucose (Fingerstick) 118 mg/dL (70-99) H Laboratory Tests 01/24/19 15:00 01/25/19 04:30 ECHOCARDIOGRAM ECHOCARDIOGRAM <Conclusion> The left ventricular systolic function is normal and the ejection fraction is within normal range. The Ejection Fraction is 55-60%. There is normal LV segmental wall motion. Calculated aortic valve area is 1.2 cm2 with maximum pressure gradient of 29 mmHg and mean pressure gradient of 17 mmHg. Doppler and color-flow analysis revealed mild aortic stenosis, visually the valve appears to be moderately stenotic. DI 0.33 DATE: 09/28/17 1037 STRESS TEST STRESS TEST Conclusion 1. Regadenoson cardioisotope stress test did not show any evidence of ischemia or infarct. 2. Normal left ventricular systolic function with ejection fraction calculated at 71%. 3. Low risk for cardiac events. DATE: 02/25/16726 ASSESSMENT/PLAN ASSESSMENT/PLAN 1. Hematochezia; none further since admission. as per GI 2. AFIB, persistent; on OAC with Xarelto 3. H/o PE, DVT 4. H/o CVA 5. Hypertension; controlled 6. Hyperlipidemia; statin 7. Moderate with mild AR Recommendations OAC on hold for now. Resume if not further bleeding noted, when okay with GI Continue BB for rate control. Supportive care ORQUIDEA CHILDRESS MD 01/25/19 0297: CARDIAC CONSULT ASSESSMENT/PLAN ASSESSMENT/PLAN Pt. seen and examined. Agree with above HEALTHCARE TRANSLATOR note. 73 y.o well known to me. Presenting with non-life threatening hematochezia. SHe has significant CV issues that necessitates anticoagulation Continue anticoagulation for now. Will need GI f/u. She has f/u with us in 3 months If she has recurrent bleeding issues, discussed with her and family about left atrial appendage closure. Thanks. NAYELI CARTER APRN Jan 25, 2019 10:16 ORQUIDEA CHILDRESS MD Jan 25, 2019 22:17
[2019-01-25 11:00] VITALS: BP 115/64
[2019-01-25] MEDS: INSULIN LISPRO 300 UNITS/3 ML VIAL. SQ SCH ×2 (12:00→17:00)
--- NOTE | 2019-01-25 12:43 | NUR ---
SS following for discharge planning. SS reviewed pt chart. Pt is from home and is currently on room air. PT recommended home with home healthcare vs. outpatient. OT recommended home independent. Nurse navigator to meet with pt to discuss home healthcare options. SS will continue to follow for discharge planning.
--- NOTE | 2019-01-25 13:30 | PDOC ---
Subjective: Subjective: No bleeding - describes previous pink and red blood. Objective: Objective: No bleeding per nurse. Plans to DC today. Vital Signs: Vital Signs Date Time Temp Pulse Resp B/P (MAP) Pulse Ox O2 Delivery O2 Flow Rate FiO2 01/25/19 13:02 88 115/64 01/25/19 11:00 97.7 18 95 Room Air 97.7 Labs: Laboratory Tests Test 01/24/19 15:00 01/24/19 16:18 01/24/19 20:39 01/25/19 04:30 White Blood Count 7.6 x10^3/uL 6.7 x10^3/uL Red Blood Count 4.36 x10^6/uL 3.93 x10^6/uL Hemoglobin 13.5 g/dL 12.2 g/dL Hematocrit 39.7 % 35.9 % Mean Corpuscular Volume 91 fL 91 fL Mean Corpuscular Hemoglobin 31 pg 31 pg Mean Corpuscular Hemoglobin Concent 34 g/dL 34 g/dL Red Cell Distribution Width 13.6 % 13.5 % Platelet Count 181 x10^3/uL 162 x10^3/uL Neutrophils (%) (Auto) 60 % 53 % Lymphocytes (%) (Auto) 29 % 30 % Monocytes (%) (Auto) 8 % 11 % Eosinophils (%) (Auto) 2 % 5 % Basophils (%) (Auto) 1 % 1 % Neutrophils # (Auto) 4.6 x10^3/uL 3.6 x10^3/uL Lymphocytes # (Auto) 2.2 x10^3/uL 2.0 x10^3/uL Monocytes # (Auto) 0.6 x10^3/uL 0.7 x10^3/uL Eosinophils # (Auto) 0.2 x10^3/uL 0.3 x10^3/uL Basophils # (Auto) 0.1 x10^3/uL 0.1 x10^3/uL Glucose (Fingerstick) 131 mg/dL 154 mg/dL Test 01/25/19 08:12 01/25/19 11:31 Glucose (Fingerstick) 118 mg/dL 222 mg/dL PE: GEN: NAD, up to chair LUNGS: CTAB HEART: RRR ABD: NABS, S/ND/NT NEURO/PSYCH: A & O �3 A/P: Hematochezia - resolved A Fib on Xarelto H/o colon polyps -- Reviewed w/ Dr. Vazquez - may restart Xarelto tomorrow from GI perspective. Our office will contact re: outpt colonoscopy. JHONATAN DE LA ROSA Jan 25, 2019 13:30
[2019-01-25 15:00] VITALS: BP 109/60
--- NOTE | 2019-01-25 15:02 | PDOC3 ---
Discharge Summary Visit Information Date of Admission: Jan 24, 2019 Date of Discharge: Jan 25, 2019 Admitting Diagnosis Comment: Hematochezia - resolved A Fib on Xarelto H/o colon polyps Final Diagnosis Problems Medical Problems: (1) GI bleed Status: Acute Brief Hospital Course Allergies Allergies Coded Allergies Type Severity Reaction Last Updated Verified WAQAS Inhibitors Allergy Intermediate Shortness of Air 09/05/16 Yes apixaban Allergy Intermediate Rash 02/23/16 Yes Vital Signs Vital Signs Date Time Temp Pulse Resp B/P (MAP) Pulse Ox O2 Delivery O2 Flow Rate FiO2 01/25/19 13:02 88 115/64 01/25/19 11:00 97.7 18 95 Room Air 97.7 Lab Results Laboratory Tests Test 01/24/19 09:30 01/24/19 09:57 01/24/19 15:00 01/24/19 16:18 Stool Occult Blood Positive (NEG) White Blood Count 8.0 x10^3/uL (4.0-11.0) 7.6 x10^3/uL (4.0-11.0) Red Blood Count 4.71 x10^6/uL (3.50-5.40) 4.36 x10^6/uL (3.50-5.40) Hemoglobin 14.6 g/dL (12.0-15.5) 13.5 g/dL (12.0-15.5) Hematocrit 43.4 % (36.0-47.0) 39.7 % (36.0-47.0) Mean Corpuscular Volume 92 fL (79-100) 91 fL (79-100) Mean Corpuscular Hemoglobin 31 pg (25-35) 31 pg (25-35) Mean Corpuscular Hemoglobin Concent 34 g/dL (31-37) 34 g/dL (31-37) Red Cell Distribution Width 13.4 % (11.5-14.5) 13.6 % (11.5-14.5) Platelet Count 204 x10^3/uL (140-400) 181 x10^3/uL (140-400) Neutrophils (%) (Auto) 69 % (31-73) 60 % (31-73) Lymphocytes (%) (Auto) 20 % (24-48) 29 % (24-48) Monocytes (%) (Auto) 8 % (0-9) 8 % (0-9) Eosinophils (%) (Auto) 3 % (0-3) 2 % (0-3) Basophils (%) (Auto) 1 % (0-3) 1 % (0-3) Neutrophils # (Auto) 5.5 x10^3/uL (1.8-7.7) 4.6 x10^3/uL (1.8-7.7) Lymphocytes # (Auto) 1.6 x10^3/uL (1.0-4.8) 2.2 x10^3/uL (1.0-4.8) Monocytes # (Auto) 0.6 x10^3/uL (0.0-1.1) 0.6 x10^3/uL (0.0-1.1) Eosinophils # (Auto) 0.2 x10^3/uL (0.0-0.7) 0.2 x10^3/uL (0.0-0.7) Basophils # (Auto) 0.1 x10^3/uL (0.0-0.2) 0.1 x10^3/uL (0.0-0.2) Prothrombin Time 26.7 SEC (11.7-14.0) Prothromb Time International Ratio 2.5 (0.8-1.1) Sodium Level 143 mmol/L (136-145) Potassium Level 3.8 mmol/L (3.5-5.1) Chloride Level 105 mmol/L (98-107) Carbon Dioxide Level 25 mmol/L (21-32) Anion Gap 13 (6-14) Blood Urea Nitrogen 15 mg/dL (7-20) Creatinine 1.3 mg/dL (0.6-1.0) Estimated GFR (Cockcroft-Gault) 40.2 BUN/Creatinine Ratio 12 (6-20) Glucose Level 212 mg/dL (70-99) Calcium Level 10.0 mg/dL (8.5-10.1) Total Bilirubin 1.7 mg/dL (0.2-1.0) Aspartate Amino Transf (AST/SGOT) 21 U/L (15-37) Alanine Aminotransferase (ALT/SGPT) 16 U/L (14-59) Alkaline Phosphatase 93 U/L (46-116) Total Protein 7.9 g/dL (6.4-8.2) Albumin 3.5 g/dL (3.4-5.0) Albumin/Globulin Ratio 0.8 (1.0-1.7) Glucose (Fingerstick) 131 mg/dL (70-99) Test 01/24/19 20:39 01/25/19 04:30 01/25/19 08:12 01/25/19 11:31 Glucose (Fingerstick) 154 mg/dL (70-99) 118 mg/dL (70-99) 222 mg/dL (70-99) White Blood Count 6.7 x10^3/uL (4.0-11.0) Red Blood Count 3.93 x10^6/uL (3.50-5.40) Hemoglobin 12.2 g/dL (12.0-15.5) Hematocrit 35.9 % (36.0-47.0) Mean Corpuscular Volume 91 fL (79-100) Mean Corpuscular Hemoglobin 31 pg (25-35) Mean Corpuscular Hemoglobin Concent 34 g/dL (31-37) Red Cell Distribution Width 13.5 % (11.5-14.5) Platelet Count 162 x10^3/uL (140-400) Neutrophils (%) (Auto) 53 % (31-73) Lymphocytes (%) (Auto) 30 % (24-48) Monocytes (%) (Auto) 11 % (0-9) Eosinophils (%) (Auto) 5 % (0-3) Basophils (%) (Auto) 1 % (0-3) Neutrophils # (Auto) 3.6 x10^3/uL (1.8-7.7) Lymphocytes # (Auto) 2.0 x10^3/uL (1.0-4.8) Monocytes # (Auto) 0.7 x10^3/uL (0.0-1.1) Eosinophils # (Auto) 0.3 x10^3/uL (0.0-0.7) Basophils # (Auto) 0.1 x10^3/uL (0.0-0.2) Laboratory Tests Test 01/24/19 16:18 01/24/19 20:39 01/25/19 04:30 01/25/19 08:12 Glucose (Fingerstick) 131 mg/dL (70-99) 154 mg/dL (70-99) 118 mg/dL (70-99) White Blood Count 6.7 x10^3/uL (4.0-11.0) Red Blood Count 3.93 x10^6/uL (3.50-5.40) Hemoglobin 12.2 g/dL (12.0-15.5) Hematocrit 35.9 % (36.0-47.0) Mean Corpuscular Volume 91 fL (79-100) Mean Corpuscular Hemoglobin 31 pg (25-35) Mean Corpuscular Hemoglobin Concent 34 g/dL (31-37) Red Cell Distribution Width 13.5 % (11.5-14.5) Platelet Count 162 x10^3/uL (140-400) Neutrophils (%) (Auto) 53 % (31-73) Lymphocytes (%) (Auto) 30 % (24-48) Monocytes (%) (Auto) 11 % (0-9) Eosinophils (%) (Auto) 5 % (0-3) Basophils (%) (Auto) 1 % (0-3) Neutrophils # (Auto) 3.6 x10^3/uL (1.8-7.7) Lymphocytes # (Auto) 2.0 x10^3/uL (1.0-4.8) Monocytes # (Auto) 0.7 x10^3/uL (0.0-1.1) Eosinophils # (Auto) 0.3 x10^3/uL (0.0-0.7) Basophils # (Auto) 0.1 x10^3/uL (0.0-0.2) Test 01/25/19 11:31 Glucose (Fingerstick) 222 mg/dL (70-99) Brief Hospital Course Ms. Enrique is a 73 old white female who lives alone at home independent and no PT needs comes in because of hematochezia. On Xarelto for the longest time for history of CVA and PE �1. Consulted GI. Hemodynamic stable, no bleed recurrence. Tolerating diet. Okay for home today and resume Xarelto tomorrow, She wants to go home History of A. fib, on beta jf and aspirin 81. Holding aspirin too. Continue beta jf. Okay to go home independent if okay with cardiology too No Rx needed for me. Advised to hold aspirin 81 indefinitely and continue Xarel to okay to start tomorrow Consults performed GI, Cards procedures none Observation status Discharge Information Condition at Discharge: Improved, Stable Disposition/Orders: D/C to Home Scheduled Amlodipine Besylate (Amlodipine Besylate) 10 Mg Tablet, 10 MG PO DAILY, (Reported) Entered as Reported by: Jeannette Bowie on 02/08/16 1702 Last Action: Continued on 01/24/191358 by BRIDGET DIEGO Glimepiride (Glimepiride) 4 Mg Tablet, 1 TAB PO BID for dm, #180 Ref 1 (Reported) Entered as Reported by: BRIDGET DIEGO on 01/24/191325 Last Action: Converted on 01/24/191358 by BRIDGET DIEGO Hydrocortisone Acetate (Anti-Itch) 28 Gm Oint...g., 1 MARIBEL TP QIDPRN, #1 Prescribed by: VIANNEY STEPHEN on 02/25/16 1152 Last Action: Continued on 01/24/191358 by BRIDGET DIEGO Insulin Degludec (Tresiba) 100 Unit/1 Ml Vial, 24 UNIT SQ HS for dm, (Reported) Entered as Reported by: BRIDGET DIEGO on 01/24/191325 Last Action: Converted on 01/24/191358 by BRIDGET DIEGO Magnesium Oxide (Magnesium Oxide) 400 Mg Tablet, 250 MG PO BID for supplement, (Reported) Entered as Reported by: BRIDGET DIEGO on 01/24/19 132 Last Action: Continued on 01/24/191358 by BRIDGET DIEGO Metoprolol Tartrate (Metoprolol Tartrate) 25 Mg Tablet, 1 TAB PO BID for htn, #180 Ref 1 (Reported) Entered as Reported by: BRIDGET DIEGO on 01/24/19 132 Last Action: Continued on 01/24/191358 by BRIDGET DIEGO Olmesartan Medoxomil (Benicar) 20 Mg Tablet, 20 MG PO DAILY for HYPERTENSION, (Reported) Entered as Reported by: BRIDGET DIEGO on 01/24/19 1326 Last Action: Converted on 01/24/191358 by BRIDGET DIEGO Rivaroxaban (Xarelto) 20 Mg Tablet, 20 MG PO DAILY for pe, (Reported) Entered as Reported by: BRIDGET DIEGO on 01/24/191325 Last Action: New Order on 01/24/191325 by BRIDGET DIEGO Simvastatin (Simvastatin) 40 Mg Tablet, 40 MG PO DAILY for FOR CHOLESTEROL, #30 Ref 0 (Reported) Entered as Reported by: JELANI BOLES on 02/08/16 1447 Last Action: Continued on 01/24/19 1359 by BRIDGET DIEGO Miscellaneous Medications Aspirin (Aspir 81) 81 Mg Tablet.dr, 81 MG PO, (Reported) Entered as Reported by: Jeannette Bowie on 02/08/161701 Last Action: Reviewed on 01/24/191325 by BRIDGET DIEGO Discontinued Medications Benzonatate (Tessalon Perle) 100 Mg Capsule, 100 MG PO TID PRN for COUGH for 10 Days, (Reported) Entered as Reported by: ANTHONY HYATT on 02/09/16 1600 Last Action: Discontinued on 01/24/191325 by BRIDGET DIEGO Glimepiride (Glimepiride) 2 Mg Tablet, 2 MG PO BIDAC, (Reported) Entered as Reported by: Jeannette Bowie on 02/08/161701 Last Action: Discontinued on 01/24/191325 by BRIDGET DIEGO Insulin Glargine,Hum.rec.anlog (Toujeo Solostar) 300 Unit/1 Ml Insuln.pen, 30 UNIT SQ HS, (Reported) Entered as Reported by: Jeannette Bowie on 02/08/161701 Last Action: Discontinued on 01/24/191325 by BRIDGET DIEGO Losartan Potassium (Losartan Potassium) 100 Mg Tablet, 100 MG PO DAILY, (Reported) Entered as Reported by: Jeannette Bowie on 02/08/161701 Last Action: Discontinued on 01/24/191325 by BRIDGET DIEGO Magnesium Oxide (Mag-Oxide) 400 Mg Tablet, 1 TAB PO BID, #180 Ref 3 (Reported) Entered as Reported by: Jeannette Bowie on 02/08/161701 Last Action: Discontinued on 01/24/191325 by ZANA ZAMUDIO MD Jan 25, 2019 15:02
--- NOTE | 2019-01-25 15:48 | NUR ---
Wound care: Patient seen per wound care consult. There are no open wounds at this time. Patient has multiple scabbed areas to right lower leg. No other areas noted. Wound care will sign off at this time. Please re consult regarding any changes for wound care. Call light in reach.
--- NOTE | 2019-01-25 18:16 | NUR ---
Discharge Note: RUTH ENNIS [facility] Discharge instructions and discharge home medications reviewed with Patient and a copy given. All questions have been answered and understanding verbalized. The following instructions and handouts were given: bleeding, dvt, stroke, PE, follow up, start xeralto 01/26/19, diet. Discontinued lines and drains: IV removed, no lines present. Patient discharged to to home. ambulated to family member's private vehicle.
== END 2019-01-25 18:00 | disposition home or self-care (01) ==
LOC: ER 08:59 → ED HOLD 11:30 → 4 NORTH 12:32 → 2 SOUTH 15:15
PROVIDERS: ADMIT Internal Medicine; ATTEND Internal Medicine
DX: K92.2 Gastrointestinal hemorrhage, unspecified (principal); E78.5 Hyperlipidemia, unspecified; E11.22 Type 2 diabetes mellitus with diabetic chronic kidney disease; I12.9 Hypertensive chronic kidney disease with stage 1 through stage 4 chronic kidney disease, or unspecified chronic kidney disease; I48.91 Unspecified atrial fibrillation; N18.9 Chronic kidney disease, unspecified; K92.1 Melena; E78.00 Pure hypercholesterolemia, unspecified; K59.00 Constipation, unspecified; Z90.49 Acquired absence of other specified parts of digestive tract; Z86.73 Personal history of transient ischemic attack (TIA), and cerebral infarction without residual deficits; Z82.49 Family history of ischemic heart disease and other diseases of the circulatory system; Z79.4 Long term (current) use of insulin; Z79.82 Long term (current) use of aspirin; Z79.01 Long term (current) use of anticoagulants; Z79.899 Other long term (current) drug therapy; Z83.3 Family history of diabetes mellitus; Z86.010 Personal history of colon polyps; Z86.711 Personal history of pulmonary embolism
CPT/HCPCS: 36415; 80053; 82274; 82962; 85025; 85610; 96372; 97110; 97116; 97161; 97166; 99284; G0378; J1815; J7030; G0379

== ENCOUNTER 2021-06-19 15:46 | Observation (INO) | payer MEDICARE ==
[~2021-06-19] VITALS: Ht 162.6 cm; Wt 108.0 kg
[~2021-06-19 15:46] MED LIST changes: +AMLO-187 PO; -AMLO10TA8 PO; +ATOR40TA59 PO; +DABI150C PO; -GLIM2TAB2 PO; +GLIM2TAB7 PO; +GLIM4TAB8 PO; +INSU100V37 SQ; +KETO5DRO24 OD; +LOSA-73 PO; +MAGN400T48 PO; +METO25TA4 PO; +MOXI3DRO OD; +OLME20TA17 PO; +PRED5DRO16 OD; +RIVA20TA2 PO; +SIMV40TA18 PO; -SIMV40TA3 PO
[2021-06-19] MEDS ORDERED: EPINEPHrine VIAL 5 MG in IV NORMAL SALINE 250ML 250 ML IV ONE (16:00)
[2021-06-19 16:45] LABS: PROTHROMBIN TIME PATIENT 78.2 SEC (11.7-14.0)
[2021-06-19 16:50] LABS: BASO % 0 % (0-3); EOS # 0.1 x10^3/uL (0.0-0.7); EOS % 1 % (0-3); HEMATOCRIT 40.2 % (36.0-47.0); HEMOGLOBIN 13.1 g/dL (12.0-15.5); LYMPH # 2.6 x10^3/uL (1.0-4.8); LYMPH % 18 % (24-48); MEAN CORPUSCULAR HEMOGLOBIN 30 pg (25-35); MEAN CORPUSCULAR HGB CONC 33 g/dL (31-37); MEAN CORPUSCULAR VOLUME 91 fL (79-100); MONO # 1.1 x10^3/uL (0.0-1.1); MONO % 7 % (0-9); NEUT # 11.1 x10^3/uL (1.8-7.7); NEUT % 74 % (31-73); PLATELET COUNT 90 x10^3/uL (140-400); RED BLOOD COUNT 4.43 x10^6/uL (3.50-5.40); RED CELL DISTRIBUTION WIDTH 14.7 % (11.5-14.5); WHITE BLOOD COUNT 14.9 x10^3/uL (4.0-11.0)
[2021-06-19 16:50] LABS: BASE EXCESS COOX -6 mmol/L (-3-3); HCO3 COOX 21 mmol/L (21-28); METHEMOGLOBIN 0.3 % (0.0-1.9); OXYHEMOGLOBIN 98.7 %; PCO2 COOX 48 mmHg (35-46); PO2 COOX > 503 mmHg (65-108); SAT O2 COOX 100 % (92-99)
[2021-06-19 16:51] LABS: PARTIAL THROMBOPLASTIN TIME > 150 SEC (24-38)
[2021-06-19] MEDS ORDERED: levETIRAcetam 1,000mg PREMIX 100 ML IV ONE (17:00)
[2021-06-19] MEDS ORDERED: IDARUCIZUMAB 2.5 GM/50 ML IV ONE (17:00)
[2021-06-19] MEDS ORDERED: ATROPINE 0.5 MG/5 ML DISP.SYRINGE. IV ONE (17:15)
[2021-06-19] MEDS ORDERED: EPINEPHrine SYRINGE 1 MG/10 ML SYRINGE. IV ONE (17:15)
[2021-06-19 17:18] LABS: CALCIUM 9.8 mg/dL (8.5-10.1); CREATININE 1.5 mg/dL (0.6-1.0); GFR 33.8; POTASSIUM 5.4 mmol/L (3.5-5.1)
[2021-06-19] MEDS: MORPHINE SULFATE 2 MG/ML INJ. IVP PRN ×2 (17:20→23:06)
[2021-06-19 17:22] LABS: MAGNESIUM 3.5 mg/dL (1.8-2.4); PHOSPHORUS 4.4 mg/dL (2.6-4.7)
[2021-06-19] MEDS ORDERED: GLYCOPYRROLATE 1 MG/5 ML VIAL. IV ONE (17:30)
[2021-06-19] MEDS ORDERED: SUCCINYLCHOLINE 200 MG/10 ML VIAL. IV ONE (17:45)
[2021-06-19] MEDS ORDERED: ETOMIDATE 20 MG/10 ML VIAL. IV ONE (17:45)
[2021-06-19 17:46] VITALS: BP 57/39
--- NOTE | 2021-06-19 18:41 | PHYS DOC ---
Past Medical History Past Medical History: A-Fib, CVA, Diabetes-Type II, High Cholesterol, Hypertension, Renal Disease (WALKER HURST MD) Past Surgical History: Cholecystectomy (WALKER HURST MD) Smoking Status: Unknown if ever smoked Alcohol Use: None Drug Use: None (WALKER HURST MD) General Adult EDM: Chief Complaint: RESP ARREST HPI: HPI: Patient is a 76 year old female with hx of CVA, afib on dabigatran, DM, HTN, HLD, CKD who presents with EMS with altered mental status and right-sided deficits. Patient was reportedly in her usual state of health/last known well last evening. This morning she fell around 7 AM. She activated life alert and her sons came to her home. At that time she was said to have right-sided facial droop and right-sided extremity weakness. Throughout the day she had progressively worsening mental status and family eventually called EMS. On EMS arrival she was alert with right-sided deficits. During transport her mental status rapidly declined and her breathing became irregular. They initiated gqs-exqvl-uitg ventilation. (WALKER HURST MD) Review of Systems: Review of Systems: Unable to obtain ROS due to unresponsiveness (WALKER HURST MD) Heart Score: C/O Chest Pain: N/A (WALKER HURST MD) C/O Chest Pain: N/A (KERRIE DAILY MD) Current Medications: Current Medications Medications (Trade) Dose Ordered Sig/Luis Carlos Start Time Stop Time Status Last Admin Dose Admin Atropine Sulfate (ATROPINE 0.5mg SYRINGE) 0.5 mg 1X ONCE 06/19/21 17:15 06/19/21 17:16 DC 06/19/21 16:12 0.5 MG Epinephrine HCl (EPINEPHrine SYRINGE) 0.5 mg 1X ONCE 06/19/21 17:15 06/19/21 17:16 DC 06/19/21 16:00 0.5 MG Epinephrine HCl 5 mg/Sodium Chloride 255 ml @ 0.306 mls/ hr 1X ONCE 06/19/21 16:00 06/19/21 16:58 DC Etomidate (Amidate) 20 mg 1X ONCE 06/19/21 17:45 06/19/21 17:46 DC 06/19/21 16:00 20 MG Glycopyrrolate (Robinul) 1 mg 1X ONCE 06/19/21 17:30 06/19/21 17:31 DC 06/19/21 17:20 1 MG Idarucizumab (Praxbind) 5 gm 1X ONCE 06/19/21 17:00 06/19/21 17:01 Cancel Levetiracetam 100 ml @ 400 mls/hr 1X ONCE 06/19/21 17:00 06/19/21 17:14 Cancel Lorazepam (Ativan Inj) 0.5 mg PRN Q10MIN PRN 06/19/21 17:00 Morphine Sulfate (Morphine Sulfate) 2 mg PRN Q15MIN PRN 06/19/21 17:00 06/19/21 17:20 2 MG Succinylcholine Chloride (Anectine) 150 mg 1X ONCE 06/19/21 17:45 06/19/21 17:46 DC 06/19/21 16:00 150 MG (WALKER HURST MD) Allergies: Allergies: Allergies Coded Allergies Type Severity Reaction Last Updated Verified WAQAS Inhibitors Allergy Intermediate Shortness of Air 09/05/16 Yes apixaban Allergy Intermediate Rash 02/23/16 Yes (WALKER HURST MD) Physical Exam: PE: Constitutional: Unresponsive, receiving rqv-bisko-zhws ventilation Eyes: Pupils equal, 3 mm bilaterally, minimally reactive to light. Cardiovascular: Bradycardic in the 20s, faintly palpable pulses, cool/mottled extremities Lungs & Thorax: Breath sounds present bilaterally with BVM, unorganized intermittent respiratory effort. Gargling secretions requiring oral suctioning. Abdomen: Soft, nondistended Skin: Cool, mottled Extremities: Cool, mottled, no deformities Neurologic: Eyes open Right-sided facial droop Eyes fixed at midline, does not track finger No blink to threat + Gag reflex with suctioning Initially no motor movement, and not withdrawing from pain with any extremity. Later seen scratching groin with right hand seemingly purposefully. At one point had right side clonic activity with rightward eye deviation (WALKER HURST MD) Current Patient Data: Labs: Laboratory Tests Test 06/19/21 16:10 06/19/21 16:40 White Blood Count 14.9 x10^3/uL (4.0-11.0) H Red Blood Count 4.43 x10^6/uL (3.50-5.40) Hemoglobin 13.1 g/dL (12.0-15.5) Hematocrit 40.2 % (36.0-47.0) Mean Corpuscular Volume 91 fL (79-100) Mean Corpuscular Hemoglobin 30 pg (25-35) Mean Corpuscular Hemoglobin Concent 33 g/dL (31-37) Red Cell Distribution Width 14.7 % (11.5-14.5) H Platelet Count 90 x10^3/uL (140-400) L Neutrophils (%) (Auto) 74 % (31-73) H Lymphocytes (%) (Auto) 18 % (24-48) L Monocytes (%) (Auto) 7 % (0-9) Eosinophils (%) (Auto) 1 % (0-3) Basophils (%) (Auto) 0 % (0-3) Neutrophils # (Auto) 11.1 x10^3/uL (1.8-7.7) H Lymphocytes # (Auto) 2.6 x10^3/uL (1.0-4.8) Monocytes # (Auto) 1.1 x10^3/uL (0.0-1.1) Eosinophils # (Auto) 0.1 x10^3/uL (0.0-0.7) Basophils # (Auto) 0.0 x10^3/uL (0.0-0.2) Prothrombin Time 78.2 SEC (11.7-14.0) H Prothrombin Time INR 10.3 (0.8-1.1) *H Activated Partial Thromboplast Time > 150 SEC (24-38) *H Sodium Level 136 mmol/L (136-145) Potassium Level 5.4 mmol/L (3.5-5.1) H Chloride Level 101 mmol/L (98-107) Carbon Dioxide Level 25 mmol/L (21-32) Anion Gap 10 (6-14) Blood Urea Nitrogen 46 mg/dL (7-20) H Creatinine 1.5 mg/dL (0.6-1.0) H Estimated GFR (Cockcroft-Gault) 33.8 Glucose Level 208 mg/dL (70-99) H Lactic Acid Level 3.7 mmol/L (0.4-2.0) H Calcium Level 9.8 mg/dL (8.5-10.1) Phosphorus Level 4.4 mg/dL (2.6-4.7) Magnesium Level 3.5 mg/dL (1.8-2.4) H Troponin I High Sensitivity 7 ng/L (4-50) IX-Fkb-E-Type Natriuretic Peptide 2181 pg/mL (0-449) H O2 Saturation 100 % (92-99) H Arterial Blood pH 7.26 (7.35-7.45) L Arterial Blood pCO2 at Patient Temp 48 mmHg (35-46) H Arterial Blood pO2 at Patient Temp > 503 mmHg (65-108) H Arterial Blood HCO3 21 mmol/L (21-28) Arterial Blood Base Excess -6 mmol/L (-3-3) L Oxyhemoglobin 98.7 % Methemoglobin 0.3 % (0.0-1.9) Carbon Monoxide, Quantitative 0.5 % (0.0-1.9) FiO2 100 Laboratory Tests 06/19/21 16:10 Laboratory Tests 06/19/21 16:10 Vital Signs: Vital Signs Date Time Temp Pulse Resp B/P (MAP) Pulse Ox O2 Delivery O2 Flow Rate FiO2 06/19/21 17:46 56 7 57/39 (45) 65 Room Air 06/19/21 15:46 98.2 98.2 (WALKER HURST MD) EKG: EKG: Junctional rhythm versus A. fib with slow ventricular response. No STEMI. EKG reviewed by fibre optic cable splicer. Tracing is not available for my review at time of dictation. [] (WALKER HURST MD) Radiology/Procedures: Radiology/Procedures: Indication: Respiratory failure Consent: Unable to give consent due to emergent nature. Medications Used: see nursing note Procedure: The patient was placed in the appropriate position. Intubation was performed with an S3 glide scope video laryngoscopy blade. 7.5 ETT was inserted and secured at 20 cm at the teeth. Initial confirmation of placement included bilateral breath sounds, tube fogging, adequate chest rise, adequate pulse oximetry reading. The patient tolerated the procedure well. Complications: none.[] Indication: Vascular access Consent: The patient provided consent for this procedure. Procedure: The patient was positioned appropriately and the skin over the [RIGHT/LEFT] [VEIN] was prepped and draped in a sterile fashion. Local anesthesia was used. Ultrasound guidance utilized. A large bore needle was used to identify the vein. A guide wire was then inserted into the vein through the needle. A triple lumen catheter was then inserted into the vessel over the guide wire using the Seldinger technique. All ports showed good, free flowing blood return and were flushed with saline solution. The catheter was then securely fastened to the skin with sutures and covered with a sterile dressing. A post procedure X-ray was ordered. The patient tolerated the procedure well. Complications: none. [] Impression: We are having difficulty with our radiology system. Report was called to me by attending radiologist and included the following findings: Left occipital intraparenchymal hemorrhage measuring 2.7 x 2 cm Right frontal intraparenchymal hemorrhage measuring 2 cm x 2.7 cm Trace subarachnoid hemorrhage Small parafalcine posterior subdural hemorrhage No midline shift (WALKER HURST MD) Course & Med Decision Making: Course & Med Decision Making Pertinent Labs and Imaging studies reviewed. (See chart for details) Patient is a 76-year-old female with history of CVA, A. fib, HTN, HLD, DM anticoagulated on dabigatran who presents with EMS for right-sided deficits and eventually obtunded mental status following a fall at 7 AM. It is unclear whether the right-sided deficits or the fall occurred first. On arrival is bradycardic to 20-30 bpm with what appears to be a junctional rhythm. She had a faint pulse, and was intermittently moaning. Blood pressure cuff could not continuous pickling line pickler pressure. She was briefly transcutaneously paced at a rate of 80 and up to 140 mA with only intermittent capture. She was given 0.5 mg atropine and 0.5 mg of IV push epinephrine x2 while an epinephrine drip was started. Good effect with epinephrine gtt and heart rate improved to the 70s80s, blood pressure stabilized 120s-140s SBP and transcutaneous pacing was discontinued. After stabilization of vital signs the patient was intubated and taken for CT of the head which revealed multiple large hemorrhagic areas including SDH, SAH, IPH. Praxbind reversal was ordered through pharmacy, but not ultimately given. -- At this time the patient's son was brought to bedside. He stated that she had previously expressed wishes to be DNR and that she would not want further inter vention or ICU stay. We discussed goals of care and determined a comfort measures approach with francisca sation of all life support should be implemented. She was given glycopyrolate and PRN ativan/morphine, epi gtt was discontinued, and she was palliatively extubated with her sons at bedside. Signed out to oncoming provider with plan to continue comfort/palliative measures. 0635 Critical care time excluding procedures was 70 minutes (WALKER HURST MD) Course & Med Decision Making Patient was made comfort care on previous shift due to intracranial hemorrhage. Getting as needed morphine and lorazepam for comfort. Family at bedside. Will admit for comfort care measures. 0510: Called to bedside, family believes patient has passed. On exam there is no pulse, no heartbeat, patient is apneic. No pupillary reflex Time of 0510 (KERRIE DAILY MD) Dragon Disclaimer: Dragon Disclaimer: This electronic medical record was generated, in whole or in part, using a voice recognition dictation system. (WALKER HURST MD) Departure Departure Impression: Primary Impression: Intraparenchymal hematoma of brain Additional Impressions: SAH (subarachnoid hemorrhage) SDH (subdural hematoma) Respiratory failure Neurogenic shock Disposition: 20 Referrals: MONICA CORDERO MD (PCP) WALKER HURST MD Jun 19, 2021 18:41 KERRIE DAILY MD Jun 20, 2021 05:13
[2021-06-19] MEDS ORDERED: MORPHINE SULFATE 4 MG/ML INJ. IV ONE (20:00)
--- NOTE | 2021-06-19 20:21 | RAD ---
Exam: CT head INDICATION: Unresponsive, reported right-sided weakness, facial droop TECHNIQUE: Sequential axial images through the head were obtained without the administration of IV co ntrast. Exposure: One or more of the following in the visualized dose reduction techniques were utilized for this examination: 1. Automated exposure control 2. Adjustment of the MA and/or KV according to patient size 3. Use of iterative of reconstructive technique Comparisons: None FINDINGS: There is a intraparenchymal hemorrhage noted within the posterior left temporal lobe which measures a pproximately 2.6 x 1.8 cm. Small amount of adjacent vasogenic edema. Additionally there is intraparen chymal hemorrhage within the right frontal lobe series 2 image 20 which measures approximately 1.6 x 2.5 cm. Small amount of subarachnoid hemorrhage noted along the superior aspect of the left frontal l obe seen on image 26. Additionally there is trace subdural hemorrhage along the falx posteriorly exte nding along the left tentorium. There is no midline shift or sulcal effacement. Mild compression of the temporal horn of the left lateral ventricle. Gaspar-white distinction is preser lenny. The basal cisterns are well maintained. The visualized portions of the paranasal sinuses and mastoid air cells are well-pneumatized. No acute fractures. IMPRESSION: At least 2 areas of intraparenchymal hemorrhage as described above the right frontal lobe and posteri or left temporal lobe with small amount of subarachnoid hemorrhage and subdural hemorrhage. No signif icant midline shift. FOR INTERNAL CODING PURPOSES Critical result: Findings discussed with WALKER HURST MD at 06/19/2021 4:50 PM. RESULT CODE: (C) Electronically signed by: Jyothi Lujan MD (06/19/2021 8:19 PM) [facility]
[2021-06-19] MEDS ORDERED: SUCCINYLCHOLINE 200 MG/10 ML VIAL. ONE (21:15)
[2021-06-20] MEDS ORDERED: MORPHINE SULFATE 10 MG/ML VIAL. ONE (01:16)
[2021-06-20] MEDS ORDERED: MORPHINE SULFATE 2 MG/ML INJ. ONE (03:00)
[2021-06-20] MEDS ORDERED: MORPHINE SULFATE 4 MG/ML INJ. IVP PRN (03:30)
[2021-06-20] MEDS ORDERED: fentaNYL PF VIAL 100 MCG/2 ML VIAL IVP PRN (03:30)
[2021-06-20] MEDS ORDERED: MORPHINE SULFATE 4 MG/ML INJ. IV PRN (03:45)
--- NOTE | 2021-06-20 08:34 | EKG ---
[facility] [address] [place] [address] Test Date: 2021-06-19 Test Time: 16:14:06 Pat Name: RUTH ENNIS Department: Room: ED HOLD 23 Gender: F Dryerman/Woman: : 1945 Requested By: WALKER HURST Order Number: [id number] Reading MD: Adrian Phillips Measurements Intervals [place] Rate: 70 P: OK: QRS: -8 QRSD: 98 T: 163 QT: 408 QTc: 443 Interpretive Statements ATRIAL FIBRILLATION LEFTWARD AXIS LOW LIMB LEAD VOLTAGE T ABNORMALITY IN ANTERIOR LEADS LATERAL LEADS Electronically Signed On 06-21-2021 13:12:11 HARNESS PREPARER by Adrian Phillips
== END 2021-06-20 05:10 ==
LOC: ER 15:46 → ED HOLD 06-20 02:30 → UNDOADMIN 06-20 02:30 → UNDODISIN 06-23 16:00
PROVIDERS: ADMIT Internal Medicine; ATTEND Internal Medicine
DX: I62.00 Nontraumatic subdural hemorrhage, unspecified (principal); I61.3 Nontraumatic intracerebral hemorrhage in brain stem; I60.9 Nontraumatic subarachnoid hemorrhage, unspecified; J96.90 Respiratory failure, unspecified, unspecified whether with hypoxia or hypercapnia; C49.A0 Gastrointestinal stromal tumor, unspecified site; R57.8 Other shock; E78.00 Pure hypercholesterolemia, unspecified; I12.9 Hypertensive chronic kidney disease with stage 1 through stage 4 chronic kidney disease, or unspecified chronic kidney disease; N18.9 Chronic kidney disease, unspecified; E11.22 Type 2 diabetes mellitus with diabetic chronic kidney disease; E78.5 Hyperlipidemia, unspecified; I48.91 Unspecified atrial fibrillation; Z79.01 Long term (current) use of anticoagulants; Z51.5 Encounter for palliative care; Z66 Do not resuscitate; Z86.73 Personal history of transient ischemic attack (TIA), and cerebral infarction without residual deficits; Z90.49 Acquired absence of other specified parts of digestive tract; Z88.8 Allergy status to other drugs, medicaments and biological substances
CPT/HCPCS: 31500; 36415; 36556; 36600; 70450; 80048; 82805; 82962; 83605; 83735; 83880; 84100; 84484; 85025; 85610; 85730; 87040; 93005; 94002; 96374; 96375; 96376; 99291; G0378; J0171; J0330; J0461; J2060; J2270; J3490; G0379